=== PATIENT | female | born 1960 | race Caucasian/White ===

== ENCOUNTER → 2017-01-18 16:17 | Outpatient (CLI) | payer BC | END | disposition home or self-care (01) | LOC: D.MAMMO 16:00 | DX: Z12.31 Encounter for screening mammogram for malignant neoplasm of breast (principal) ==

== ENCOUNTER 2017-02-22 09:00 | Day surgery (SDC) | payer BC ==
[~2017-02-22] VITALS: Ht 157.5 cm; Wt 84.5 kg
--- NOTE | ~2017-02-22 | HP ---
PATIENT: MOLINA LOO MEDICAL RECORD: [id number] ACCOUNT: [id number] LOCATION:[facility] : 58 ADMISSION DATE: 02/22/17 HISTORY AND PHYSICAL EXAMINATION DATE OF SERVICE: 02/22/2017 REFERRING PHYSICIAN: Juma Louie MD. HISTORY OF PRESENT ILLNESS: The patient is a 56-year-old white female, who presents for screening colonoscopy. She is asymptomatic from GI standpoint. ALLERGIES: No known drug allergies. PAST MEDICAL HISTORY: Remarkable for hypertension, depression and anxiety. PAST SURGICAL HISTORY: Remarkable for cholecystectomy, appendectomy, tonsillectomy and ganglion cyst removal. HOME MEDICATIONS: Tenormin, meloxicam, estradiol, Provera, Xanax, Effexor, Neurontin, Flexeril, Ultram and Ambien. FAMILY HISTORY: Negative for GI disease. SOCIAL HISTORY: The patient is a nonsmoker, nondrinker. REVIEW OF SYSTEMS: Noncontributory other than in the HPI. PHYSICAL EXAMINATION: GENERAL: Reveals a well-developed, well-nourished white female, in no acute distress. VITAL SIGNS: Stable. She is afebrile. CHEST: Clear. HEART: Regular rate and rhythm. ABDOMEN: Soft, nontender. EXTREMITIES: No edema. IMPRESSION: Age related risk for colon cancer in need of screening colonoscopy. PLAN: Screening colonoscopy. TRANSINT:[id number] Voice Confirmation ID: [id number] DOCUMENT ID: [id number] OMAR CYR MD CC: JUMA LOUIE MD [id number] DICTATION DATE: 02/22/17 1120 [employer] OPERATOR: 02/22/17 1139 [facility] [address] [place] [address]
--- NOTE | ~2017-02-22 | PRO ---
PATIENT:MOLINA LOO MEDICAL RECORD: [id number] : 58 LOCATION:[facility] ADMISSION DATE: 02/22/17 PROCEDURE PERFORMED BY: BRIAN BARBA MD DATE OF PROCEDURE: 02/22/2017 BODY ARTIST: Brian Barba MD PROCEDURE: Colonoscopy with hot biopsy/polypectomy times 3. INDICATION: The patient is a 56-year-old white female, who presents for screening colonoscopy. She is asymptomatic from GI standpoint. PREMEDICATION: Taper anesthesia. INSTRUMENT: Olympus video adjustable colonoscope. FINDINGS: Rectal exam was normal. The colonoscope was passed through the rectum and to the cecum without much difficulty. Prep was good. Exam was remarkable only for 2 small polyps, both of these were less than 5 mm in size. One was in the cecum, one was in the sigmoid colon. Both of these were removed by hot biopsy technique. She also had a somewhat inflamed looking appendiceal orifice. I went ahead and hot biopsied this area just to be sure this was not some adenomatous type of a lesion. The rest of exam was normal. There was no evidence of any mass, lesions, large polypoid lesions or diverticular disease. She did have small internal hemorrhoids on retroflexion in the rectum. The patient tolerated the procedure well without complication. IMPRESSION: 1. Two small colon polyps, now status post polypectomy via hot biopsy as noted above. 2. Slightly inflamed appendiceal orifice area, probably no clinical significance, now status post hot biopsy. 3. Small internal hemorrhoids. 4. Otherwise, normal colonoscopy. PLAN: 1. Follow up biopsy results. 2. Avoid constipation and straining with the bowel movement. 3. Surveillance colonoscopy in 5 years. 4. Avoid aspirin/NSAIDs for about 10 days. TRANSINT:[id number] Voice Confirmation ID: [id number] DOCUMENT ID: [id number] BRIAN BARBA MD CC: JEREMIAH LOUIE MD [id number] DICTATION DATE: 02/22/17 1141 MORNING NEWS PRODUCER: 02/23/17 0344 [facility] 02/22/[address] [address]
[2017-02-22 09:14] LABS: BASOPHILS 0.1 % (0-2); EOSINOPHILS 1.7 % (0-7); HEMATOCRIT 45.7 % (36.0-48.0); HEMOGLOBIN 15.4 g/dL (12-16); IMMATURE GRANULOCYTES 0.3 % (0-5); LYMPHOCYTES 26.2 % (15-50); MCH 31.7 pg (26.0-34.0); MCHC 33.7 g/dL (31.0-37.0); MEAN PLATELET VOLUME 9.7 fL (7.4-10.4); MONOCYTES 5.8 % (2-11); NEUTROPHILS 65.9 % (40-80); PLATELET COUNT 307 10x3/uL (130-400); RBC 4.86 10x6/uL (4.00-5.40); RDW 12.9 % (11.5-14.5); WBC 7.4 10x3/uL (4.8-10.8)
[2017-02-22] MEDS ORDERED: MELOXICAM TAB 15M (09:19)
[2017-02-22] MEDS ORDERED: ESTRACE2 MG PO (09:19)
[2017-02-22] MEDS ORDERED: PROVERA10 MG PO (09:19)
[2017-02-22] MEDS ORDERED: TENORMIN50 MG PO (09:19)
[2017-02-22] MEDS ORDERED: XANAX1 MG PO (09:20)
[2017-02-22] MEDS ORDERED: EFFEXOR XR150 MG PO (09:20)
[2017-02-22] MEDS ORDERED: AMBIEN10 MG PO (09:21)
[2017-02-22] MEDS ORDERED: NEURONTIN 400400 MG PO (09:21)
[2017-02-22] MEDS ORDERED: ULTRAM50 MG PO (09:21)
[2017-02-22] MEDS ORDERED: CYCLOBENZAPRINE10 MG PO (09:21)
[2017-02-22 09:22] LABS: ANION GAP 10.2 mmol/L (8-16); CALCIUM 9.4 mg/dL (8.5-10.1); CARBON DIOXIDE 29.6 mmol/L (21.0-32.0); CREATININE - SERUM 0.9 mg/dL (0.6-1.3); POTASSIUM - SERUM 3.8 mmol/L (3.5-5.1)
[2017-02-22 09:47] VITALS: BP 153/91; Ht 157.5 cm; Wt 84.5 kg
--- NOTE | 2017-02-22 19:44 | NUR ---
1230 IV DC WITH CATHER TIP INTACT
== END 2017-02-22 12:45 | disposition home or self-care (01) ==
LOC: D.OPS 09:00
PROVIDERS: Anesthesiology
DX: Z12.11 Encounter for screening for malignant neoplasm of colon (principal); Z01.812 Encounter for preprocedural laboratory examination; D12.0 Benign neoplasm of cecum; D12.5 Benign neoplasm of sigmoid colon; K64.8 Other hemorrhoids

== ENCOUNTER → 2019-01-23 14:46 | Outpatient (CLI) | payer BC ==
[2017-02-22 09:47] VITALS: BMI 34.1
[~2019-01-23 14:46] MED LIST: AMBIEN10 MG PO; CYCLOBENZAPRINE10 MG PO; EFFEXOR XR150 MG PO; ESTRACE2 MG PO; MELOXICAM TAB 15M; NEURONTIN 400400 MG PO; PROVERA10 MG PO; TENORMIN50 MG PO; ULTRAM50 MG PO; XANAX1 MG PO
== END | disposition home or self-care (01) ==
LOC: D.MRI 14:46
PROVIDERS: ATTEND Anesthesiology Pain Medicine
DX: M47.897 Other spondylosis, lumbosacral region (principal)

== ENCOUNTER 2019-07-28 08:00 | Outpatient (CLI) | payer BC ==
[2017-02-22 09:47] VITALS: BMI 34.1
== END 2019-07-28 23:59 | disposition home or self-care (01) ==
LOC: D.MAMMO 08:00
PROVIDERS: ATTEND Obstetrics & Gynecology
DX: Z12.31 Encounter for screening mammogram for malignant neoplasm of breast (principal)